=== PATIENT | male | born 1945 | race Caucasian/White ===

== ENCOUNTER → 2023-12-18 09:01 | Outpatient (CLI) | payer OTHER, SELFPAY ==
[2023-12-18 10:35] LABS: Appearance Urine UA CLEAR; Bilirubin Urine UA NEGATIVE (NEGATIVE); Color Urine UA YELLOW; Glucose Urine UA 3+ g/dL (Negative); Ketones Urine UA NEGATIVE (NEGATIVE); Leukocyte Esterase Urine UA NEGATIVE (NEGATIVE); Nitrite Urine UA NEGATIVE (Negative); Occult Blood Urine UA NEGATIVE (Negative); Protein Urine UA NEGATIVE (Negative); Specific Gravity Urine UA 1.015 (1.000-1.035); Urobilinogen Urine UA 0.2 E.U./dL (0.2)
[2023-12-18 11:08] LABS: Bacteria Urine None Seen; Culture Indicated Urine Cult Not Indicated; RBC Urine None Seen (0-5/HPF); Squamous Epithelial Cell Urine None Seen (0-5/HPF); Urine Volume 10mL (spun); WBC Urine None Seen (0-5/HPF)
[2023-12-19 05:38] LABS: Free T3, Triiodothyronine Free 3.13 pg/mL (2.77-5.27); Free T4, Direct Thyroxine 1.13 ng/dL (0.78-2.19)
[2023-12-19 05:52] LABS: Thyroid Stimulating Hormone 1.97 uIU/mL (0.47-4.68)
== END ==
LOC: LAB 09:06
PROVIDERS: Referring Provider Chiropractor; Visit Provider Chiropractor
DX: E03.9 Hypothyroidism, unspecified (principal); E11.9 Type 2 diabetes mellitus without complications
CPT/HCPCS: 36415; 81001; 84439; 84443; 84481